=== PATIENT | female | born 1970 | race Hispanic/Latino ===

== ENCOUNTER 2019-11-09 10:00 | Outpatient (CLI) | payer OTHER ==
[2019-11-09] MEDS ORDERED: Iopamidol 370 76% 100 ML VIAL ONE (11:06)
--- NOTE | 2019-11-09 13:03 | CT ---
CT ABDOMEN AND PELVIS WITH AND WITHOUT IV CONTRAST: HISTORY: Microhematuria. FINDINGS: There are dependent changes in the lung bases. The patient is post cholecystectomy and hysterectomy. The liver, spleen, pancreas, and adrenal glands are normal. No calculi are seen in the kidneys, ureters, or the urinary bladder. Postcontrast images demonstrate no evidence of renal mass. There is normal contrast excretion into the ureters and urinary bladder. No free air, free fluid, or lymphadenopathy is seen in the abdomen or pelvis. There is no evidence o f aneurysmal dilatation of the abdominal aorta. The small bowel loops are not abnormally dilated. A normal-appearing appendix is present. There are mild degenerative changes in the spine. IMPRESSION: No CT evidence of urinary tract calculi/obstruction or renal mass. POS: [facility]
== END 2019-11-09 10:01 | disposition home or self-care (01) ==
LOC: BICCT 10:00
PROVIDERS: ATTEND Family Medicine
DX: R31.9 Hematuria, unspecified (principal)
CPT/HCPCS: 74178